=== PATIENT | female | born 1980 | race Two or more races ===

== ENCOUNTER 2017-09-13 20:16 | Emergency (ER) | payer SELFPAY ==
[2017-09-13] MEDS ORDERED: Famotidine 20 MG/2 ML SDV IVPUSH ONE (20:36)
[2017-09-13] MEDS ORDERED: diphenhydrAMINE 50 MG/ML SDV IVPUSH ONE (20:36)
[2017-09-13] MEDS ORDERED: Ondansetron 4 MG/2 ML SDV IVPUSH ONE (20:36)
[2017-09-13] MEDS ORDERED: methylPREDNISolone Sodium Succinate 125 MG/2 ML SDV IVPUSH ONE (20:37)
[2017-09-13] MEDS ORDERED: Sodium Chloride 0.9% 1,000 ML IV SCH (20:45)
--- NOTE | 2017-09-13 20:55 | EDM.PDOC ---
ED HPI GENERAL MEDICAL PROBLEM - General Chief Complaint: Allergic Reaction Stated Complaint: ALLERGIC REACTION Time Seen by Provider: 09/13/17 20:30 Source of Information: Reports: Patient History Limitations: Reports: No Limitations - History of Present Illness INITIAL COMMENTS - FREE TEXT/NARRATIVE: This is a 37-year-old female. This evening she ate a pomegranate and she was also using a new facial wash when she noted that her face began to feel swollen she began to itch all over her belly started to hurt and she figured she is having an allergic reaction. She hasn't noticed any obvious hives she just seems to be red all over with itching. No problems with swallowing but she was somewhat short of breath but no wheezing. When she got to the ER she did vomit one time. She apparently took 3 Benadryl 30 minutes prior to coming to the ER and then she vomited and I believe she probably vomited them back up. She is feeling slightly better now but still having the redness of the skin and itching. She has no history of allergies to pomegranate's. This facial cream she 's been using she's used in the past but this is the same type cream but it's medicated and she is never used that before. Abdominal Pain Score (Numeric/FACES): 8 - Related Data Allergies Allergy/AdvReac Type Severity Reaction Status Date / Time mosquito Allergy Swelling Uncoded 09/13/17 20:36 pets Allergy Itching Uncoded 09/13/17 20:36 Home Meds: Home Meds . [No Known Home Meds] 09/13/17 [History] Past Medical History - Past Health History Medical/Surgical History: Denies Medical/Surgical History Social & Family History - Family History Neurological: Reports: CVA - Tobacco Use Smoking Status *Q: Never Smoker Second Hand Smoke Exposure: No - Caffeine Use Caffeine Use: Reports: Coffee - Recreational Drug Use Recreational Drug Use: No ED ROS ALLERGIC REACTION - Review of Systems Review Of Systems: See Below Constitutional: Denies: Fever, Chills HEENT: Reports: Other (Facial swelling) Respiratory: Reports: Shortness of Breath. Denies: Wheezing Cardiovascular: Denies: Chest Pain Endocrine: Reports: No Symptoms GI/Abdominal: Reports: Abdominal Pain, Nausea, Vomiting : Reports: No Symptoms Musculoskeletal: Reports: No Symptoms Skin: Reports: Other (Generalized erythema and itching) Neurological: Reports: No Symptoms Psychiatric: Reports: No Symptoms Hematologic/Lymphatic: Reports: No Symptoms ED EXAM GENERAL NO PERIP PULSE - Physical Exam Exam: See Below Exam Limited By: No Limitations General Appearance: Alert, WD/WN, Mild Distress Eye Exam: Bilateral Eye: Normal Inspection, Other (Her eyelids do appear to be slightly swollen however face itself does not appear to be swollen) Ears: Normal External Exam, Normal Canal, Normal TMs Nose: Normal Inspection Throat/Mouth: Normal Inspection, Normal Lips, Normal Voice, Other (The oropharynx appears to be open there is no obvious swelling of the tongue or the oral pharynx there is no airway compromise) Head: Normocephalic Neck: Supple Respiratory/Chest: No Respiratory Distress, Lungs Clear, Normal Breath Sounds. No: Crackles, Wheezing Cardiovascular: Regular Rate, Rhythm, No Murmur GI/Abdominal: Soft, Other (Mild upper abdominal soreness on palpation but no obvious pain bowel sounds are decreased) Back Exam: Normal Inspection, Full Range of Motion Extremities: Normal Inspection, Normal Range of Motion Neurological: Alert, Oriented Psychiatric: Anxious Skin Exam: Warm, Dry, Other (I don't see any obvious hives or other type patchy rash she is seems to be generally erythematous) Course - Vital Signs Last Recorded V/S: Last Vital Signs Temp 97.5 F 09/13/17 20:31 Pulse 116 H 09/13/17 20:31 Resp 22 H 09/13/17 20:31 BP 116/82 09/13/17 20:31 Pulse Ox 98 09/13/17 20:31 - Orders/Labs/Meds Orders: Active Orders 24 hr Category Date Time Status Sodium Chloride 0.9% [Normal Saline] 1,000 ml Med 09/13/17 20:45 Active IV ASDIRECTED Medication Orders Sodium Chloride (Normal Saline) 1,000 mls @ 500 mls/hr IV ASDIRECTED NICHOLE Last Admin: 09/13/17 20:44 Dose: 500 mls/hr Meds: Medications Generic Name Dose Route Start Last Admin Trade Name Freq PRN Reason Stop Dose Admin Sodium Chloride 1,000 mls @ 500 mls/hr 09/13/17 20:45 09/13/17 20:44 Normal Saline IV 500 mls/hr ASDIRECTED NICHOLE Administration Discontinued Medications Generic Name Dose Route Start Last Admin Trade Name Freq PRTony Reason Stop Dose Admin Acetaminophen 650 mg 09/13/17 21:00 09/13/17 21:12 Tylenol PO 09/13/17 21:01 650 mg NOW ONE Administration Diphenhydramine HCl 25 mg 09/13/17 20:36 09/13/17 20:49 Benadryl IVPUSH 09/13/17 20:37 25 mg ONETIME ONE Administration Famotidine 20 mg 09/13/17 20:36 09/13/17 20:44 Pepcid IVPUSH 09/13/17 20:37 20 mg ONETIME ONE Administration Lorazepam 0.5 mg 09/13/17 21:15 09/13/17 21:21 Ativan IVPUSH 09/13/17 21:16 0.5 mg ONETIME ONE Administration Methylprednisolone Sodium Succinate 125 mg 09/13/17 20:37 09/13/17 20:49 Solu-Medrol IVPUSH 09/13/17 20:38 125 mg ONETIME ONE Administration Ondansetron HCl 4 mg 09/13/17 20:36 09/13/17 20:47 Zofran IVPUSH 09/13/17 20:37 4 mg ONETIME ONE Administration - Re-Assessments/Exams Free Text/Narrative Re-Assessment/Exam: 09/13/17 22:48 The patient is feeling so much better. Her eyelids are down to normal now she does not have the flushed looking skin any longer and she is not itching her belly is no longer cramping or having pain. She feels 100% better and she wants to go home. I think the stomach symptoms are probably from the pomegranate however I think the facial symptoms were related to the facial cream. She is to avoid both of these. And she understands. Departure - Departure Time of Disposition: 22:49 Disposition: Home, Self-Care 01 Condition: Good Clinical Impression: Facial swelling, Abdominal cramps, Food intolerance Allergic reaction Qualifiers: Encounter type: initial encounter Qualified Code(s): T78.40XA - Allergy, unspecified, initial encounter - Discharge Information Referrals: PCP,None [Primary Care Provider] - Forms: ED Department Discharge Additional Instructions: Just drink fluids this evening and then have a easy to digest breakfast such as oatmeal or something soft so it will not flareup any of your stomach symptoms, you might get some diarrhea tomorrow due to the irritation in your stomach tonight, do not use that facial cream ever again, take Benadryl 25 mg every 8 hours starting tomorrow when you wake up, follow up with your family doctor this week as needed or return to the ER if needed - My Orders Last 24 Hours: My Active Orders 09/13/17 20:45 Sodium Chloride 0.9% [Normal Saline] 1,000 ml IV ASDIRECTED - Assessment/Plan Last 24 Hours: My Active Orders 09/13/17 20:45 Sodium Chloride 0.9% [Normal Saline] 1,000 ml IV ASDIRECTED
[2017-09-13] MEDS ORDERED: Acetaminophen 325 MG Tab PO ONE (21:00)
[2017-09-13] MEDS ORDERED: LORazepam 2 MG/ML MDV IVPUSH ONE (21:15)
== END 2017-09-13 23:20 | disposition home or self-care (01) ==
LOC: JD.ED 20:16
DX: T78.40XA Allergy, unspecified, initial encounter (principal); K90.49 Malabsorption due to intolerance, not elsewhere classified; R22.0 Localized swelling, mass and lump, head; R10.9 Unspecified abdominal pain; Z91.09 Other allergy status, other than to drugs and biological substances; Z91.010 Allergy to peanuts
CPT/HCPCS: 96361; 96374; 96375; 99283; A9270; J1200; J2060; J2405; J2930; J7040; 99284